=== PATIENT | female | born 1990 | race Caucasian/White ===

== ENCOUNTER 2017-03-18 10:16 | Emergency (ER) | payer BC ==
[~2017-03-18] VITALS: Ht 172.7 cm; Wt 73.5 kg
[2017-03-18 10:23] VITALS: BP 118/59
[2017-03-18] MEDS ORDERED: B12 INJ INJ (10:39)
== END 2017-03-18 12:03 | disposition home or self-care (01) ==
LOC: ED 11:08
DX: S93.491A Sprain of other ligament of right ankle, initial encounter (principal); X58.XXXA Exposure to other specified factors, initial encounter; Y93.89 Activity, other specified; Y92.89 Other specified places as the place of occurrence of the external cause; Y99.8 Other external cause status
CPT/HCPCS: 99284